=== PATIENT | female | born 1985 | race Hispanic/Latino ===

== ENCOUNTER 2016-05-13 07:00 | Inpatient (IN) | payer OTHER ==
--- NOTE | 2016-05-12 16:11 | History & Physical ---
General Information and HPI MD Statement: I have seen and personally examined PRAVEENA IYER and documented this H&P. The patient is a 30 year old female at [39] weeks and [0] days gestation who presented with a chief complaint of [repeat elective ]. History of Present Illness: 30-year-old 2 para 1 LMP 08/14/2015 at 39 weeks gestation admitted for repeat elective section. Allergies/Medications Allergies: Coded Allergies: Sulfa (Sulfonamide Antibiotics) (Severe, HIVES 01/02/16) Home Med list Cetirizine HCl (Zyrtec) 10 MG TABLET 1 TAB PO DAILY allergies (Reported) Docusate Sodium 100 MG CAPSULE 100 MG PO AT BEDTIME PRN STOOL SOFTENER Ibuprofen 800 MG TABLET 800 MG PO Q6P PRN UTERINE CRAMPING Oxycodone HCl/Acetaminophen (Percocet 5-325 MG Tablet) 5 MG-325 MG TABLET 1-2 TAB PO Q4P PRN PAIN SCALE 4-6 (MODERATE) Vit No.130/Iron/FA ( Tablet) 27 MG IRON-800 MCG TABLET 1 TAB PO DAILY (Reported) Valacyclovir HCl (Valacyclovir) 500 MG TABLET 1 TAB PO DAILY ANTIVIRAL ( Reported) Past History financial services technician History : 2 Para: 1 Last Menstrual Period: 08/14/2015 Past financial services technician History: Medical History Neurological: NONE EENT: allergies Cardiovascular: NONE Respiratory: asthma Gastrointestinal: NONE Hepatic: NONE Renal: NONE Musculoskeletal: NONE Psychiatric: NONE Endocrine: NONE Blood Disorders: NONE Cancer(s): NONE OUTSIDE MACHINIST HELPER/Reproductive: NONE Surgical History Pertinent Surgical History: non-contributory Review of Systems Review of Systems Constitutional: Reports: no symptoms. EENTM: Reports: no symptoms. Cardiovascular: Reports: no symptoms. Respiratory: Reports: no symptoms. GI: Reports: no symptoms. Genitourinary: Reports: no symptoms. Musculoskeletal: Reports: no symptoms. Skin: Reports: no symptoms. Neurological/Psychological: Reports: no symptoms. Hematologic/Endocrine: Reports: no symptoms. Immunologic/Allergic: Reports: no symptoms. All Other Systems: Reviewed and Negative Exam & Diagnostic Data Last 24 Hrs of Vital Signs/I&O vss Obstetric Exam Wgt Gained During : 35 pounds Pelvimetry: Gynecoid Dilation (cm): 0 Effacement (%): 0 Station: 0 Membranes: intact Fluid: unknown Fundal Height (cm): 40 Multiple Gestation? No Contractions: Rare Infant #1 - FHR Baseline: 140 Category: 1 Estimated Weight: 7 pounds Presentation: Cephalic Patient for Induction? No Physical Exam: HEENT: Normocephalic atraumatic Neck: No thyromegaly Chest: Clear to auscultation bilaterally Cardiovascular: Normal S1, S2 Abdomen: Gravid, cephalic, 7 pounds Pelvic: Long, thick, closed, posterior Extremities: No clubbing, cyanosis, or edema Neurologic: Nonfocal Labs Blood Type & Rh: apos Antibody Screen: neg Hct/Hgb & Platelets #1: 30/10/200 Hct/Hgb & Platelets #2: 30//200 Rubella: imm VDRL #1: nr VDRL #2: nr HbsAg: neg HIV #1: neg HIV #2 neg 1 Hr P Group B Strep: neg Initial Ultrasound: wnl Anatomy Ultrasound: wnl Genetic Testing: neg Assessment/Plan As Ranked By This Provider Problem List: 1. Core Measures/Miscellaneous Venous Thromboembolism VTE Risk Factors: Obesity, / VTE Contraindications: No Contraindications VTE Prophylaxis Ordered Inpt: Mechanical (ALPS/TEDS) VTE Diagnosis: No Beta Anu Is Beta Anu a Home Med? No Antibiotics Is Patient on Antibiotics? Yes
[~2016-05-13] VITALS: Ht 165.1 cm; Wt 102.1 kg
[~2016-05-13 07:00] MED LIST: MEDROL4 M2 PO; TYLENOL WITH C1 EACH PO; VALACYCLOVIR500 M1 PO; VISTARIL25 M1 PO
[2016-05-13] MEDS ORDERED: PRENATAL TABLE1 EAC2 PO (10:28)
[2016-05-13] MEDS ORDERED: ZYRTEC10 M3 PO (10:29)
[2016-05-14 07:59] LABS: ABSOLUTE BASOPHIL COUNT 0 /CUMM (0.0-0.2); ABSOLUTE EOSINOPHIL COUNT 0.1 /CUMM (0.0-0.7); ABSOLUTE GRANULOCYTE CT 10.1 /CUMM (1.4-6.5); ABSOLUTE LYMPH COUNT 2.5 /CUMM (1.2-3.4); ABSOLUTE MONOCYTE COUNT 0.7 /CUMM (0.10-0.60); BASOPHIL % 0.3 % (0.0-2.0); EOSINOPHIL % 1.1 % (0-5); GRANULOCYTE % 74.8 % (42.2-75.2); HEMATOCRIT 33.8 % (37-47); MEAN CORPUSCULAR HGB 28.5 PG (27.0-31.0); MEAN CORPUSCULAR HGB CONC 33.6 G/DL (33.0-37.0); MEAN CORPUSCULAR VOLUME 84.9 FL (81.0-99.0); MEAN PLATELET VOLUME 7.8 FL (7.4-10.4); PLATELET COUNT 175 /CUMM (130-400); RBC DISTRIBUTION WIDTH 16.3 % (11.5-14.5); RED BLOOD CELL CT 3.98 /CUMM (4.20-5.40); WHITE BLOOD CELL COUNT 13.4 /CUMM (4.8-10.8)
--- NOTE | 2016-05-15 20:53 | PN- General Surgery ---
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 Core Measures/Miscellaneous Venous Thromboembolism VTE Risk Factors: / VTE Contraindications: No Contraindications VTE Prophylaxis Ordered Inpt Mechanical (ALPS/TEDS) VTE Diagnosis: No Beta Anu Is Beta Anu a Home Med? No Antibiotics Is Patient on Antibiotics? No
[2016-05-15] MEDS ORDERED: PERCOCET 5-3251 EACH PO (20:54)
[2016-05-15] MEDS ORDERED: IBUPROFEN800 M1 PO (20:54)
[2016-05-15] MEDS ORDERED: DOCUSATE SODIU100 M3 PO (20:54)
--- NOTE | 2016-05-16 00:38 | Operative Report ---
Operative/Inv Procedure Report Surgery Date: 05/13/16 Name of Procedure: Repeat section Pre-Operative Diagnosis: 39 week previous Post-Operative Diagnosis: Same Estimated Blood Loss: 600 mL Surgeon/Client Insights Consultant: PHILLIP GROVES MD,FRANSISCO Sanders M.D. Anesthesia: spinal Operative/Procedure Note Note: The patient was brought to the operating room and placed on the OR table in the sitting position where she underwent spinal anesthetic. She was repositioned into dorsal supine. Venodyne boots were placed a Jones was placed and drained clear yellow urine. The abdomen was prepped and draped in usual sterile fashion. A Pfannenstiel skin incision was made over the old scar and taken down to the layer of the fascia. The fascia was nicked in the midline and extended bilaterally. Rectus muscles were and the peritoneal cavity was entered sharply. Versus uterine incision was made with the scalpel and a liveborn male was delivered atraumatically over one nuchal cord and meconium-stained fluid. The placenta was then manually removed. Uterus was exteriorized and wiped clean with a wet lap sponge. The uterus was closed in 2 layers of 0 Polysorb, the second indicating first. The abdomen and pelvis were copiously irrigated and the uterus was placed back into the abdominal cavity. The rectus muscles were reapproximated using 2-0 Polysorb. The fascia was closed using 0 Polysorb in a running nonlocking fashion. Subcutaneous tissues were irrigated and coagulated were needed. Skin was closed using 4-0 Biosyn in a subcuticular fashion. A dry sterile dressing was applied to the wound patient was sent to recovery in good condition All needle, sponge and instrument counts were correct at the procedure 2.
--- NOTE | 2016-06-11 12:27 | Surgical Discharge Summary ---
Visit Information Visit Dates Admission Date: 05/13/16 Discharge Date: 05/16/16 History of Present Illness Chief Complaint: Previous Medical History Neurological: NONE EENT: allergies Cardiovascular: NONE Respiratory: asthma Gastrointestinal: NONE Hepatic: NONE Renal: NONE Musculoskeletal: NONE Psychiatric: NONE Endocrine: NONE Blood Disorders: NONE Cancer(s): NONE ELECTRICAL ELECTRONICS ENGINEERS/Reproductive: NONE Surgical History Pertinent Surgical History: Psychosocial History What is Your Primary Language? Czech Review of Systems: Negative for Hospital Course Course Attending Physician: FRANSISCO MARCANO MD Primary Care Physician: JIN LAINEZ,[facility] Course: The patient was brought in for repeat elective and this was performed without complication. She was sent to recovery in good condition. On postoperative day #1 she was without complaints her vital signs are stable and she was afebrile. Jones was discontinued diet was advance activity was increased. Postoperative day #2 patient was doing well and was stable. She was tolerating a regular diet voiding and ambulating. On postoperative day #3 the patient was stable and discharged home. Allergies: Coded Allergies: Sulfa (Sulfonamide Antibiotics) (Severe, HIVES 01/01/) Disposition Summary Disposition Principal Diagnosis: Term Additional Diagnosis: Previous Discharge Disposition: home or self care Discharge Instructions General Discharge Information Code Status: Full Code Patient's Diet: Regular Patient's Activity: Pelvic rest Follow-Up Instructions/Appts: 1 week Medications at Discharge Discharge Medications: Continue taking these medications: Valacyclovir HCl (Valacyclovir) 500 MG TABLET 1 Tablet ORAL DAILY Qty = 36 Vit No.130/Iron/FA ( Tablet) 27 MG IRON-800 MCG TABLET 1 Tablet ORAL DAILY Cetirizine HCl (Zyrtec) 10 MG TABLET 1 Tablet ORAL DAILY Start taking the following new medications: Ibuprofen (Ibuprofen) 800 MG TABLET 800 Milligram ORAL EVERY SIX HOURS NEEDED as needed for UTERINE CRAMPING Qty = 30 No Refills Comments: Last Taken: 05/16/16 Time: 5:30 AM Oxycodone HCl/Acetaminophen (Percocet 5-325 MG Tablet) 5 MG-325 MG TABLET 1-2 Tablet ORAL EVERY 4 HOURS NEEDED as needed for PAIN SCALE 4-6 ( MODERATE) Qty = 24 No Refills Comments: Last Taken: 05/16/16 Time: 5:30 AM Docusate Sodium (Docusate Sodium) 100 MG CAPSULE 100 Milligram ORAL AT BEDTIME as needed for STOOL SOFTENER Qty = 60 No Refills
== END 2016-05-16 11:38 | DRG 766 ==
LOC: SDA 07:00 → GNO 09:50
PROVIDERS: ADMIT Obstetrics & Gynecology
PROC: 10D00Z1 Extraction of Products of Conception, Low, Open Approach (ICD-10-PCS; principal; 2016-05-13)
DX: O34.211 Maternal care for low transverse scar from previous cesarean delivery (principal); N85.8 Other specified noninflammatory disorders of uterus; Z3A.39 39 weeks gestation of pregnancy; Z37.0 Single live birth
CPT/HCPCS: GNOS; 36415; 87086; J0131; J0690; J1885; J7120